=== PATIENT | female | born 1990 | race African-American/Black ===

== ENCOUNTER 2018-10-17 10:26 | Emergency (ER) | payer OTHER ==
[~2018-10-17] VITALS: Ht 160 cm; Wt 81.2 kg
[2018-10-17] MEDS ORDERED: TESSALON PERLE100 MG PO (11:42)
[2018-10-17 11:48] VITALS: BP 108/69
== END 2018-10-17 11:51 | disposition home or self-care (01) ==
LOC: ER 10:26
DX: J06.9 Acute upper respiratory infection, unspecified (principal)

== ENCOUNTER 2019-02-20 17:40 | Emergency (ER) | payer OTHER ==
[~2019-02-20] VITALS: Ht 157.5 cm; Wt 79.4 kg
[~2019-02-20 17:40] MED LIST: TESSALON PERLE100 MG PO
[2019-02-20] MEDS ORDERED: NAPROSYN500 MG PO (19:02)
[2019-02-20] MEDS ORDERED: HYDROCODONE-AP1 EAC6 PO (19:02)
[2019-02-20 19:19] VITALS: BP 123/71
== END 2019-02-20 19:20 | disposition home or self-care (01) ==
LOC: ER 17:40
DX: S92.341A Displaced fracture of fourth metatarsal bone, right foot, initial encounter for closed fracture (principal); W22.8XXA Striking against or struck by other objects, initial encounter; Y93.89 Activity, other specified; Y92.89 Other specified places as the place of occurrence of the external cause; Y99.8 Other external cause status